=== PATIENT | female | born 1975 | race African-American/Black ===

== ENCOUNTER 2018-08-21 07:04 | Day surgery (SDC) | payer OTHER ==
[2018-08-20 15:48] VITALS: BMI 31.8
[2018-08-21] MEDS ORDERED: INSULIN (NOVOLOG) ASPART 100 UNITS/ML 10ML VIAL SQ ONE ×2 (08:10→08:55)
[2018-08-21] MEDS ORDERED: ONDANSETRON 4 MG/2 ML VIAL IVPUSH PRN (08:26)
[2018-08-21] MEDS ORDERED: ACETAMINOPHEN 500 MG TABLET (FP) PO PRN (08:26)
[2018-08-21] MEDS ORDERED: LACTATED RINGERS SOLUTION 1,000 ML IV SCH (08:30)
[2018-08-21] MEDS ORDERED: PROPOFOL 20 ML ONE ×2 (09:33)
[2018-08-21] MEDS ORDERED: KETOROLAC TROMETHAMINE 30 MG/1 ML VIAL ONE (09:33)
[2018-08-21] MEDS ORDERED: MIDAZOLAM HCL 2 MG/2 ML SINGLE DOSE VIAL ONE (09:33)
[2018-08-21] MEDS ORDERED: LIDOCAINE HCL 2% (20ML MULTI-DOSE VIAL) NR ONE (09:40)
[2018-08-21] MEDS ORDERED: IBUPROFEN 800 MG/8 ML IJ IVPB ONE (09:41)
[2018-08-21 13:37] VITALS: BP 106/53; PULSE 79; TEMP 98.3
--- NOTE | 2018-08-21 16:37 | OP ---
DATE OF OPERATION: 08/21/2018 PREOPERATIVE DIAGNOSIS: Irregular vaginal bleeding and anemia. POSTOPERATIVE DIAGNOSIS: Irregular vaginal bleeding and anemia; questionable endometrial polyp. PROCEDURE: Dilation and curettage, hysteroscopy. SURGEON: Rustam Chong DO ANESTHESIA: General. IV FLUIDS: 300 mL DISTENTION MEDIA IN: 175 mL DISTENTION MEDIA OUT: 50 mL DISTENTION MEDIA DEFICIT: 25 mL ESTIMATED BLOOD LOSS: 25 mL SPECIMENS: Endometrial lining; polyp. COMPLICATIONS: None. FINDINGS: Examination under anesthesia revealed a normal vagina; no vaginal discharge; cervix closed; uterus 8 to 10 weeks' size, nontender. Hysteroscopy questionable. Pedunculated polyp on the anterior wall of the uterus. The risks, benefits and alternatives of the procedure were discussed with the patient. She understood the risks of the procedure, including but not limited to uterine perforation, fluid overload, with the risk, although small, of . The patient wished to proceed and signed consent. PROCEDURE: The patient was taken to the operating room where general anesthesia was administered without difficulty. She was placed upon the table in the dorsal lithotomy position, prepped and draped in the usual sterile fashion. Examination under anesthesia revealed the findings above. A weighted speculum was inserted to the posterior aspect of the vagina. A single-toothed tenaculum was used to grasp the anterior lip of the cervix. The uterus was carefully sounded to 7 cm. The cervical os was then sequentially dilated to accommodate the 5-mm scope using dilators. This was followed by insertion of the hysteroscope under direct vision visualization and the uterus was distended with normal saline. The aforementioned findings were noted. The hysteroscope was then withdrawn and the cervix was further dilated to accommodate a large sharp curette. The uterus was curetted in a clockwise fashion until a gritty sensation was noted in all aspects of the uterus. The polyp was retrieved. Subsequently, the polyp and the endometrial scrapings were sent to Pathology. The tenaculum was removed from the cervix with excellent hemostasis noted at the puncture site. The patient tolerated the procedure well. The instrument counts and sponge counts were correct x2. The patient was awakened from general anesthesia and was taken to the recovery room in stable condition. The patient is to go home after recovering from the anesthesia and meeting all criteria for discharge. The patient was instructed to return to the office in two weeks with Dr. Chong. Rustam Chong DO /[id number]
--- NOTE | 2018-08-24 14:35 | PATH ---
Surgical Pathology Report Patient Name: NILDA PRYOR [facility]. Rec. #: [id number] /Age/Gender: 1975 (Age: 42) / F Account: [id number] Location: [facility] SURGICAL Taken: 08/21/2018 Received: 08/21/2018 Reported: 08/24/2018 Physicians: Rustam Chong DO Specimen(s) Received ENDOMETRIAL CURETTINGS Clinical History Irregular bleeding, anemia Final Diagnosis ENDOMETRIAL CURETTINGS, DILATION AND CURETTAGE: POLYPOID FRAGMENTS OF SECRETORY ENDOMETRIUM AND BENIGN CERVICAL TISSUE. Electronically Signed Chayito Garg M.D. Gross Description Received in formalin labeled "endometrial curettings," is a 1.8 x 1.4 x 0.3 cm aggregate of stern pink soft tissue fragments. The formalin is filtered and the specimen is entirely submitted in one cassette. /08/21/201808/21/2018
== END 2018-08-21 13:10 | disposition home or self-care (01) ==
LOC: JASU-SURG 07:04
PROVIDERS: ATTEND Obstetrics & Gynecology
PROC: 0UJD8ZZ Inspection of Uterus and Cervix, Via Natural or Artificial Opening Endoscopic (ICD-10-PCS; 2018-08-21)
PROC: 0UB97ZX Excision of Uterus, Via Natural or Artificial Opening, Diagnostic (ICD-10-PCS; principal; 2018-08-21 08:30)
PROC: 0UDB7ZX Extraction of Endometrium, Via Natural or Artificial Opening, Diagnostic (ICD-10-PCS; 2018-08-21 08:30)
DX: N93.9 Abnormal uterine and vaginal bleeding, unspecified (principal); D64.9 Anemia, unspecified; N84.0 Polyp of corpus uteri
CPT/HCPCS: 82962; 84703; 88305-TC; 94760